=== PATIENT | female | born 1950 | race Caucasian/White ===

== ENCOUNTER 2017-09-15 15:08 | Outpatient (CLI) | payer MEDICARE, OTHER | END 2017-09-15 15:09 | disposition home or self-care (01) | LOC: BICMAMMO 15:08 | PROVIDERS: ATTEND Family Medicine | DX: Z12.31 Encounter for screening mammogram for malignant neoplasm of breast (principal) | CPT/HCPCS: 77066; G0279 ==

== ENCOUNTER 2018-09-28 14:08 | Outpatient (CLI) | payer MEDICARE, OTHER ==
--- NOTE | 2018-09-28 14:44 | MMO ---
Bilateral MAMMO Bilat Screen [facility]. CLINICAL HISTORY: Patient is 68 years old and is seen for screening. The patient has no family history of breast cancer. The patient has no personal history of cancer. VIEWS: The views performed were: bilateral craniocaudal with tomosynthesis; bilateral mediolateral oblique with tomosynthesis; and bilateral exaggerated craniocaudal. FILMS COMPARED: The present examination has been compared to prior imaging studies performed at [facility] on 11/01/2013, 08/07/2016 and 09/15/2017, and at [facility] on 05/09/2011. MAMMOGRAM FINDINGS: There are scattered fibroglandular densities. There are stable benign appearing calcifications seen in both breasts. There are also vascular calcifications. There are no suspicious masses, suspicious calcifications, or new areas of architectural distortion. IMPRESSION: THERE IS NO MAMMOGRAPHIC EVIDENCE OF MALIGNANCY. A ROUTINE FOLLOW-UP MAMMOGRAM IN 1 YEAR IS RECOMMENDED. THE RESULTS OF THIS EXAM WERE SENT TO THE PATIENT. ACR BI-RADS Category 2 - Benign finding MAMMOGRAPHY NOTE: 1. A negative mammogram report should not delay a biopsy if a dominant of clinically suspicious mass is present. 2. Approximately 10% to 15% of breast cancers are not detected by mammography. 3. Adenosis and dense breasts may obscure an underlying neoplasm.
== END 2018-09-28 14:09 | disposition home or self-care (01) ==
LOC: BICMAMMO 14:08
PROVIDERS: ATTEND Internal Medicine Cardiovascular Disease
DX: Z12.31 Encounter for screening mammogram for malignant neoplasm of breast (principal)
CPT/HCPCS: 77063; 77067

== ENCOUNTER 2018-11-18 17:58 | Inpatient (IN) | payer MEDICARE, OTHER ==
[2018-11-18 18:43] LABS: #Eosinphils 0.3 thou/uL (0.0-0.7); #Lymphocytes 2.2 thou/uL (1.20-3.40); #Monocytes 0.5 thou/uL (0.11-0.59); #Neutrophils 3.5 thou/uL (1.40-6.50); %Basophils 0.4 % (0.0-1.0); %Eosinophils 3.8 % (0.0-10.0); %Lymphocytes 34.1 % (21.0-51.0); %Monocytes 7.8 % (0.0-10.0); %Neutrophils 53.8 % (42.0-75.0); Hemoglobin 12.2 g/dL (12.0-16.0); Mean Corpuscular HGB CONC 33.9 g/dL (32.0-36.0); Mean Corpuscular Hemoglobin 30.6 pg (27.0-31.0); Mean Corpuscular Volume 90.3 fL (78.0-98.0); Mean Platelet Volume 9.1 fL (7.4-10.4); Platelet Count 170 thou/uL (130-400); RBC Distribution Width 11.7 % (11.5-14.5); Red Blood Cell (RBC) Count 3.99 mill/uL (4.20-5.40); White Blood Cell (WBC) Count 6.5 thou/uL (4.8-10.8)
--- NOTE | 2018-11-18 18:44 | RAD ---
CHEST TWO VIEWS: 11/18/18 HISTORY: Chest pain and shortness of breath. Heart size and mediastinum are within normal limits. The lungs are clear of infiltrates. There are ar thritic changes of the spine. IMPRESSION: No active intrathoracic disease. POS: OFF
[2018-11-18 19:04] LABS: ALT (SGPT) 30 U/L (8-55); AST (SGOT) 22 U/L (5-34); Albumin 4.5 g/dL (3.4-4.8); Alkaline Phosphatase 112 U/L (40-150); Anion Gap 16 mmol/L (10-20); BUN (Urea Nitrogen) 12 mg/dL (9.8-20.1); Bilirubin, Total 0.4 mg/dL (0.2-1.2); Calc. Creatinine Clearance 0 mL/min (70-130); Calcium 9.8 mg/dL (7.8-10.44); Carbon Dioxide 24 mmol/L (23-31); Chloride 106 mmol/L (98-107); Estimated GFR-MDRD 66; Globulin 2.5 g/dL (2.4-3.5); Glucose 107 mg/dL (80-115); Potassium 3.6 mmol/L (3.5-5.1); Sodium 142 mmol/L (136-145)
[2018-11-18] MEDS ORDERED: Nitroglycerin 2% Ointment 1 INCH/1 GM Packet ONE (19:23)
[2018-11-18] MEDS ORDERED: Aspirin Chewable 81 MG TAB ONE (19:23)
[2018-11-18] MEDS ORDERED: Acetaminophen 500 MG TAB ONE (20:02)
[2018-11-18] MEDS ORDERED: Ondansetron PF 4 MG/2 ML Vial IVP PRN (22:27)
[2018-11-18] MEDS ORDERED: Ondansetron ODT 4 MG TAB SL PRN (22:27)
[2018-11-18 23:08] VITALS: BMI 27.8
[2018-11-18 23:21] LABS: Troponin I Less than 0.010 ng/mL (< 0.028)
[2018-11-19 00:53] LABS: Troponin I Less than 0.010 ng/mL (< 0.028)
[2018-11-19] MEDS ORDERED: Nitroglycerin 0.4 MG TAB (25 Tab Bottle) SL PRN (02:08)
[2018-11-19] MEDS ORDERED: hydrALAZINE 20 MG/ML VIAL SLOW IVP PRN (02:08)
[2018-11-19] MEDS ORDERED: Acetaminophen 500 MG TAB PO PRN (02:08)
--- NOTE | 2018-11-19 03:00 | HP ---
TIME OF EVALUATION: 7:30 p.m. CHIEF COMPLAINT: Chest pain. HISTORY OF PRESENT ILLNESS: Ms. Self is a 68-year-old female with a past medical history significant for recently diagnosed coronary artery disease, hypertension, and hyperlipidemia, who presented to the hospital with complaints of worsening chest pain, fatigue, and shortness of breath. The patient states that she had a left heart catheterization performed by Dr. Perez on October 29, 2018 at an outpatient facility, records currently not available. Per the patient, at that time, she was told that she had 70% stenosis in 2 vessels. Medical management was recommended at that time. The patient has been on aspirin, statin, beta agueda , SANDEEP inhibitor, and Imdur was started right after her LHC. The patient did not respond well to Imdur and she continued to have chest pain, so she discontinued that medication. Over the last several weeks, the patient has noticed worsening fatigue. She has had some chest discomfort that she describes as a squeezing pain that occasionally radiates to the left shoulder. She has some general dyspnea on exertion that has been fairly constant and new for her along with general fatigue. Her symptoms worsened to the point today that she decided to seek emergent care at the emergency room at our facility. On arrival to the ER, the patient was given an application of nitroglycerin paste, which did help relieve her symptoms. Her EKG shows some very mild ST depression in the inferior leads and sinus rhythm. Her initial troponin is negative. REVIEW OF SYSTEMS: A 12-point review of systems was performed and is negative except as stated above. The patient has had no recent illnesses, fever, or sick contacts. ALLERGIES: IODINE. HOME MEDICATIONS: 1. Atorvastatin 40 mg 1 tablet daily. 2. Aspirin 81 mg daily. 3. Omeprazole 40 mg once daily. 4. Lisinopril 10 mg once daily. 5. Metoprolol tartrate 50 mg p.o. b.i.d. 6. Vitamin D3 2000 units once daily. 7. Fish oil 600 mg orally once daily. PAST MEDICAL HISTORY: Recently diagnosed [id number] coronary artery disease, hypertension, and hyperlipidemia. PAST SURGICAL HISTORY: Left heart catheterization and hysterectomy. SOCIAL HISTORY: The patient has no history of smoking, alcohol use, or illicit drug abuse. She lives independently here in town with family nearby. She has been very active up until a couple of months ago when her presenting symptoms started to limit her activities. PHYSICAL EXAMINATION: VITAL SIGNS: Blood pressure 178/83, pulse is 66, respirations 17, O2 saturation 95% on room air, and temperature 97.4. GENERAL: The patient is a well-appearing 68-year-old female, resting comfortably in bed, in no acute distress. HEENT: Head is atraumatic and normocephalic. Mucous membranes are moist. NECK: Trachea is midline. No obvious JVD. No carotid bruits. CV: S1 and S2. Regular rate and rhythm. No appreciable murmurs, rubs, or gallops. LUNGS: Regular respiratory rate and pattern. Clear to auscultation bilaterally. No rhonchi, wheezes, or crackles noted. ABDOMEN: Soft, positive bowel sounds, and nontender. EXTREMITIES: No edema, +2 DP pulses bilaterally. Both lower extremities are warm and well perfused. SKIN: Warm and dry. No rashes. NEUROLOGIC: Cranial nerves 2 through 12 are grossly intact. The patient is nonfocal. LABORATORY DATA: White blood cell count 6.5, hemoglobin 12.2, hematocrit 36, platelet count is 170. Sodium 142, potassium 3.6, carbon dioxide 24, BUN 12, creatinine 0.85. AST, ALT, and alkaline phosphatase all within normal limits. First troponin is negative. ASSESSMENT: 1. Chest pain concerning for Unstable angina. 2. Nbohbfsf-qu-sobaaj coronary artery disease per left heart catheterization in September of 2018; per patient, 70% stenosis in 2 vessels, report currently unavailable; the patient appears to have failed medical management at this time. 3. Hypertension. 4. Hyperlipidemia. PLAN: Will continue the patient's cardiac medications including aspirin, statin, beta-agueda, and SANDEEP inhibitor and titrate her antihypertensives accordingly. We will continue nitroglycerin paste and p.r.n. nitrates. We will consult Cardiology for further recommendations regarding the patient's symptoms, further management, and appropriateness of left heart catheterization with possible PCI this hospitalization. Further recommendations based on hospital course. Job ID: [id number] [facility]
[2018-11-19 05:47] LABS: Cardiac Risk 4.1 (Less than 4.5)
[2018-11-19] MEDS: Nitroglycerin 2% Ointment 1 INCH/1 GM Packet TOP SCH ×3 (06:33→21:13)
[2018-11-19] MEDS: Fish Oil 1,000 MG CAP PO SCH ×2 (08:13→21:15)
[2018-11-19] MEDS: Lisinopril 10 MG TAB PO SCH (08:13)
[2018-11-19] MEDS: Aspirin 81 mg Enteric Coated Tablet PO SCH (08:13)
[2018-11-19] MEDS: Metoprolol Tartrate 50 MG TAB PO SCH ×2 (08:14→21:14)
[2018-11-19] MEDS ORDERED: Atorvastatin Calcium 40 MG TAB PO SCH (09:00)
--- NOTE | 2018-11-19 14:04 | PDOC.PN ---
- Subjective Encounter Start Date: 11/19/18 Encounter Start Time: 11:30 Subjective: Patient examined, was resting comfortably -: Patient denies c/o, denies SOB, chest pain - Objective Vital Signs & Weight: Vital Signs (12 hours) Temp Pulse Resp BP BP Pulse Ox 11/19/18 11:50 97.7 F 54 L 15 165/73 H 99 11/19/18 08:13 158/75 H 11/19/18 08:00 98.4 F 69 16 158/75 H 98 11/19/18 02:59 97.6 F 76 14 131/63 96 Weight Weight 71.123 kg I&O: 11/18/18 11/19/18 11/20/18 06:59 06:59 06:59 Intake Total 0 Output Total 150 Balance -150 Result Diagrams: 11/20/18 11:31 11/18/18 18:21 Phys Exam - Physical Examination HEENT: PERRLA, moist MMs Neck: no nodes, supple Respiratory: clear to auscultation bilateral Cardiovascular: RRR Gastrointestinal: soft, non-tender Musculoskeletal: no edema, pulses present Neurological: non-focal, normal sensation Lymphatic: no nodes Psychiatric: normal affect, A&O x 3 Skin: no rash, normal turgor Dx/Plan (1) Hypertension Code(s): I10 - ESSENTIAL (PRIMARY) HYPERTENSION Status: Chronic (2) CAD (coronary artery disease) Code(s): I25.10 - ATHSCL HEART DISEASE OF [place] CORONARY ARTERY W/O ANG PCTRS Status: Chronic (3) Chest pain Code(s): R07.9 - CHEST PAIN, UNSPECIFIED Status: Acute - Plan cont current plan of care Cardiology has seen patient and changed her medications -: Will repeat labs in AM, will continue to monitor -: Will DC once cleared by cardiology * . Review of Systems - Review of Systems Cardiovascular: light headedness Neurological: Weakness - Medications/Allergies Allergies/Adverse Reactions: Allergies Allergy/AdvReac Type Severity Reaction Status Date / Time iodine Allergy Intermediate Nausea Verified 11/18/18 23:14 Medications: Current Medications Acetaminophen (Tylenol) 1,000 mg PO Q6H PRN PRN Reason: Mild Pain (1-3) Aspirin (Ecotrin) 81 mg PO DAILY [facility] Last Admin: 11/19/18 08:13 Dose: 81 mg Atorvastatin Calcium (Lipitor) 80 mg PO HS [facility] Cholecalciferol (Vitamin D3) 2,000 units PO DAILY [facility] Last Admin: 11/19/18 08:13 Dose: 2,000 units Fish Oil (Fish Oil) 1,000 mg PO BID [facility] Last Admin: 11/19/18 08:13 Dose: 1,000 mg Hydralazine HCl (Apresoline) 10 mg SLOW IVP Q4H PRN PRN Reason: SBP > 180 and HR < 70 Isosorbide Mononitrate (Imdur Er) 15 mg PO DAILY [facility] Lisinopril (Zestril) 10 mg PO DAILY [facility] Last Admin: 11/19/18 08:13 Dose: 10 mg Metoprolol Tartrate (Lopressor) 50 mg PO BID [facility] Last Admin: 11/19/18 08:14 Dose: 50 mg Nitroglycerin (Nitro-Bid 2% Ointment) 0.5 inch TOP Q8HR [facility] Stop: 11/20/18 06:00 Last Admin: 11/19/18 06:33 Dose: Not Given Nitroglycerin (Nitrostat) 0.4 mg SL Q5MIN PRN PRN Reason: Chest Pain Pantoprazole Sodium (Protonix) 40 mg PO BID [facility]
--- NOTE | 2018-11-19 14:51 | CON ---
DATE OF CONSULTATION: HISTORY OF PRESENT ILLNESS: Chio Self is a 68-year-old white female, followed by Dr. Perez. She had a normal cardiac PET scan in 08/2017. She returned for followup in 08/2018. She continued to complain of chest discomfort. Ultimately, decision was made to have her undergo cardiac catheterization. This was performed at [facility]. She was found to have an ejection fraction of 70%. The left main and LAD were normal. The left circumflex had a 60% to 70 % lesion in the first obtuse marginal. There was a 60% to 70% proximal right coronary artery lesion. It was felt best to treat her medically and isosorbide mononitrate ER 30 mg q.a.m. was added to her regimen. She stopped taking this due to lightheadedness and weakness, but denied any headache when taking medication. She now is admitted with increased lower chest discomfort. She describes as a pressure in her chest that comes on with exertion; however, now it is seems to occur more at rest. This would last for 10-15 minutes. She states that she thinks her chest pain got worse because "Dr. Perez was messing around in there." She does have a history of GERD and takes omeprazole 40 mg on a daily basis. PAST MEDICAL HISTORY: 1. Hypertension. 2. Hypercholesterolemia, poorly controlled. 3. Coronary artery disease. 4. Fatty liver. OPERATIONS: Hysterectomy. MEDICATIONS: 1. Omeprazole 40 mg daily. 2. Aspirin 81 mg daily. 3. Atorvastatin 40 daily. 4. Lisinopril 10 mg daily. 5. Metoprolol 50 b.i.d. 6. Fish oil 1000 mg b.i.d. ALLERGIES: IODINE. SOCIAL HISTORY: She does not smoke or drink. REVIEW OF SYSTEMS: A 10-point review of systems is otherwise unremarkable. PHYSICAL EXAMINATION: VITAL SIGNS: Blood pressure 165/73 and pulse of 54. HEENT: PERRL. NECK: Supple. CHEST: Clear. CARDIAC: S1 and S2 are normal without any S3, S4, or murmurs. ABDOMEN: Normal bowel sounds without tenderness. Specifically there is no epigastric tenderness. EXTREMITIES: No clubbing, cyanosis, or edema. NEUROLOGIC: Grossly intact. SKIN: Warm and dry. LABORATORY DATA: EKG reveals normal sinus rhythm with nonspecific ST changes. CBC is unremarkable. Cholesterol 196, triglycerides 143, HDL 48, and LDL 119. TSH is normal. Cardiac enzymes are normal x3. Sodium 142, potassium 3.6, chloride 106 , carbon dioxide 24, BUN 12, and creatinine 0.85. IMPRESSION: 1. Progressive chest discomfort. With her anatomy on catheterization 3 weeks ago, it would seem unlikely that this pain would be cardiac in nature. 2. Coronary artery disease with 60% to 70% first obtuse marginal lesion and 60% to 70% right coronary artery lesion. 3. Hypertension. 4. Hypercholesterolemia, poorly controlled. PLAN: It would be unlikely that her current symptoms are cardiac in nature given her anatomy on catheterization 3 weeks ago. I would restart her isosorbide mononitrate, however, we will only start her on 15 mg daily. I also would double her proton pump inhibitor while in the hospital. If she continues to have chest discomfort, then consideration may need to be given to repeat catheterization and flow-wire measurement versus intravascular ultrasound of her lesions. Job ID: [id number] [facility]
[2018-11-19] MEDS: Atorvastatin Calcium 40 MG TAB PO SCH (21:15)
[2018-11-20] MEDS: Nitroglycerin 2% Ointment 1 INCH/1 GM Packet TOP SCH (06:27)
[2018-11-20] MEDS: Aspirin 81 mg Enteric Coated Tablet PO SCH (08:25)
[2018-11-20] MEDS: Fish Oil 1,000 MG CAP PO SCH ×2 (08:25→20:09)
[2018-11-20] MEDS: Metoprolol Tartrate 50 MG TAB PO SCH ×2 (08:26→20:10)
[2018-11-20] MEDS: Lisinopril 10 MG TAB PO SCH (08:26)
[2018-11-20 11:44] LABS: #Eosinphils 0.2 thou/uL (0.0-0.7); #Lymphocytes 1.5 thou/uL (1.20-3.40); #Monocytes 0.6 thou/uL (0.11-0.59); #Neutrophils 3.6 thou/uL (1.40-6.50); %Basophils 0.4 % (0.0-1.0); %Monocytes 9.6 % (0.0-10.0); Mean Corpuscular HGB CONC 34.6 g/dL (32.0-36.0); Mean Corpuscular Hemoglobin 31.6 pg (27.0-31.0); Mean Corpuscular Volume 91.3 fL (78.0-98.0); Mean Platelet Volume 8.4 fL (7.4-10.4); Platelet Count 179 thou/uL (130-400); RBC Distribution Width 11.9 % (11.5-14.5); White Blood Cell (WBC) Count 5.9 thou/uL (4.8-10.8)
--- NOTE | 2018-11-20 11:54 | PDOC.PN ---
- Subjective Encounter Start Date: 11/20/18 Encounter Start Time: 10:00 Subjective: Patient examined today, reports she did not sleep well -: Also reports her BP went up overnight -: C/o of profound fatigue, reports she finds it difficult to do ADLs - Objective Vital Signs & Weight: Vital Signs (12 hours) Temp Pulse Resp BP BP BP Pulse Ox 11/20/18 11:13 97.7 F 64 12 134/60 95 11/20/18 08:26 125/63 11/20/18 07:00 97.6 F 65 12 125/63 94 L 11/20/18 04:29 98.3 F 72 14 102/49 L 95 Weight Weight 70.352 kg I&O: 11/19/18 11/20/18 11/21/18 06:59 06:59 06:59 Intake Total 0 1080 Output Total 150 1050 Balance -150 30 Result Diagrams: 11/20/18 11:31 11/20/18 11:31 Phys Exam - Physical Examination HEENT: PERRLA, moist MMs Neck: no nodes, full ROM Respiratory: clear to auscultation bilateral Cardiovascular: RRR Gastrointestinal: soft, non-tender Musculoskeletal: pulses present, edema present Neurological: normal sensation, moves all 4 limbs Lymphatic: no nodes Psychiatric: normal affect, A&O x 3 Skin: no rash, cap refill <2 seconds Dx/Plan (1) Hypertension Code(s): I10 - ESSENTIAL (PRIMARY) HYPERTENSION Status: Chronic (2) CAD (coronary artery disease) Code(s): I25.10 - ATHSCL HEART DISEASE OF [place] CORONARY ARTERY W/O ANG PCTRS Status: Chronic (3) Chest pain Code(s): R07.9 - CHEST PAIN, UNSPECIFIED Status: Acute (4) Fatigue Code(s): R53.83 - OTHER FATIGUE Status: Acute - Plan cont current plan of care Cardiology has been consulted, changed her medications -: PT evaluation with CM consult for HH, PT, and/or SNF -: Iron/Ferritin labs ordered, -: Will continue to monitor, appreciate cardiology's recommendations -: Case/plan discussed with Dr. Morin * . Review of Systems - Review of Systems Cardiovascular: chest pain Other: Profound fatigue, - Medications/Allergies Allergies/Adverse Reactions: Allergies Allergy/AdvReac Type Severity Reaction Status Date / Time iodine Allergy Intermediate Nausea Verified 06/20/19 23:14 Medications: Current Medications Acetaminophen (Tylenol) 1,000 mg PO Q6H PRN PRN Reason: Mild Pain (1-3) Aspirin (Ecotrin) 81 mg PO DAILY [facility] Last Admin: 11/20/18 08:25 Dose: 81 mg Atorvastatin Calcium (Lipitor) 80 mg PO HS [facility] Last Admin: 11/19/18 21:15 Dose: 80 mg Cholecalciferol (Vitamin D3) 2,000 units PO DAILY [facility] Last Admin: 11/20/18 08:25 Dose: 2,000 units Fish Oil (Fish Oil) 1,000 mg PO BID [facility] Last Admin: 11/20/18 08:25 Dose: 1,000 mg Hydralazine HCl (Apresoline) 10 mg SLOW IVP Q4H PRN PRN Reason: SBP > 180 and HR < 70 Isosorbide Mononitrate (Imdur Er) 15 mg PO DAILY [facility] Last Admin: 11/20/18 08:25 Dose: 15 mg Lisinopril (Zestril) 10 mg PO DAILY [facility] Last Admin: 11/20/18 08:26 Dose: 10 mg Metoprolol Tartrate (Lopressor) 50 mg PO BID [facility] Last Admin: 11/20/18 08:26 Dose: 50 mg Nitroglycerin (Nitrostat) 0.4 mg SL Q5MIN PRN PRN Reason: Chest Pain Pantoprazole Sodium (Protonix) 40 mg PO BID [facility] Last Admin: 11/20/18 08:30 Dose: 40 mg
[2018-11-20 12:02] LABS: Anion Gap 10 mmol/L (10-20); BUN (Urea Nitrogen) 15 mg/dL (9.8-20.1); Calc. Creatinine Clearance 70 mL/min (70-130); Calcium 9.4 mg/dL (7.8-10.44); Carbon Dioxide 24 mmol/L (23-31); Chloride 109 mmol/L (98-107); Estimated GFR-MDRD 68; Glucose 112 mg/dL (80-115); Iron 85 ug/dL (50-170); Iron Binding Capacity, Total 306 mcg/dL (265-497); Potassium 4.1 mmol/L (3.5-5.1); Sodium 139 mmol/L (136-145)
[2018-11-20] MEDS: Atorvastatin Calcium 40 MG TAB PO SCH (20:09)
[2018-11-21 04:40] LABS: #Eosinphils 0.3 thou/uL (0.0-0.7); #Lymphocytes 1.6 thou/uL (1.20-3.40); #Monocytes 0.5 thou/uL (0.11-0.59); #Neutrophils 2.4 thou/uL (1.40-6.50); %Basophils 0.7 % (0.0-1.0); %Eosinophils 5.5 % (0.0-10.0); %Monocytes 10.8 % (0.0-10.0); Hemoglobin 11.5 g/dL (12.0-16.0); Mean Corpuscular HGB CONC 34.5 g/dL (32.0-36.0); Mean Corpuscular Hemoglobin 31.5 pg (27.0-31.0); Mean Corpuscular Volume 91.3 fL (78.0-98.0); Mean Platelet Volume 8.4 fL (7.4-10.4); Platelet Count 163 thou/uL (130-400); RBC Distribution Width 11.8 % (11.5-14.5); Red Blood Cell (RBC) Count 3.67 mill/uL (4.20-5.40); White Blood Cell (WBC) Count 4.8 thou/uL (4.8-10.8)
[2018-11-21 04:59] LABS: Anion Gap 12 mmol/L (10-20); BUN (Urea Nitrogen) 15 mg/dL (9.8-20.1); Calc. Creatinine Clearance 76 mL/min (70-130); Carbon Dioxide 22 mmol/L (23-31); Chloride 109 mmol/L (98-107); Estimated GFR-MDRD 74; Glucose 110 mg/dL (80-115); Sodium 139 mmol/L (136-145)
[2018-11-21] MEDS: Aspirin 81 mg Enteric Coated Tablet PO SCH (08:50)
[2018-11-21] MEDS: Fish Oil 1,000 MG CAP PO SCH (08:50)
[2018-11-21] MEDS: Lisinopril 10 MG TAB PO SCH (08:50)
[2018-11-21] MEDS: Metoprolol Tartrate 50 MG TAB PO SCH (08:50)
[2018-11-21 12:07] VITALS: BP 133/63; TEMP 97.7
== END 2018-11-21 15:22 | disposition home or self-care (01) | DRG 313 ==
LOC: ERS 17:58 → 2SW 20:00 → OBSVTOIN 11-20 15:01
PROVIDERS: ADMIT Hospitalist; ATTEND Hospitalist
DX: R07.89 Other chest pain (principal); I25.10 Atherosclerotic heart disease of native coronary artery without angina pectoris; I10 Essential (primary) hypertension; E78.5 Hyperlipidemia, unspecified; R53.83 Other fatigue; Z79.82 Long term (current) use of aspirin; Z90.710 Acquired absence of both cervix and uterus; Z88.8 Allergy status to other drugs, medicaments and biological substances
CPT/HCPCS: 36415; 71046; 80048; 80053; 80061; 82306; 82728; 83540; 83550; 83690; 84443; 84484; 85025; 93005

== ENCOUNTER 2018-12-21 13:43 | Outpatient (CLI) | payer MEDICARE, OTHER ==
[2018-12-21 16:18] LABS: #Eosinphils 0.5 thou/uL (0.0-0.7); #Lymphocytes 1.6 thou/uL (1.20-3.40); #Monocytes 0.8 thou/uL (0.11-0.59); #Neutrophils 4.5 thou/uL (1.40-6.50); %Basophils 0.3 % (0.0-1.0); %Eosinophils 7.1 % (0.0-10.0); %Lymphocytes 22.1 % (21.0-51.0); %Monocytes 10.1 % (0.0-10.0); %Neutrophils 60.4 % (42.0-75.0); Hemoglobin 11.9 g/dL (12.0-16.0); Mean Corpuscular Hemoglobin 30.4 pg (27.0-31.0); Mean Corpuscular Volume 92.4 fL (78.0-98.0); Mean Platelet Volume 8.9 fL (7.4-10.4); Platelet Count 187 thou/uL (130-400); RBC Distribution Width 12.5 % (11.5-14.5); Red Blood Cell (RBC) Count 3.91 mill/uL (4.20-5.40); White Blood Cell (WBC) Count 7.4 thou/uL (4.8-10.8)
[2018-12-21 16:24] LABS: PTT 29.3 SEC (22.9-36.1); Prothrombin Time 13.3 SEC (12.0-14.7)
[2018-12-21 16:37] LABS: ALT (SGPT) 62 U/L (8-55); AST (SGOT) 35 U/L (5-34); Albumin 4.5 g/dL (3.4-4.8); Alkaline Phosphatase 95 U/L (40-150); Anion Gap 13 mmol/L (10-20); BUN (Urea Nitrogen) 13 mg/dL (9.8-20.1); Bilirubin, Total 0.7 mg/dL (0.2-1.2); Calc. Creatinine Clearance 0 mL/min (70-130); Calcium 10.3 mg/dL (7.8-10.44); Carbon Dioxide 25 mmol/L (23-31); Chloride 106 mmol/L (98-107); Estimated GFR-MDRD 72; Globulin 2.5 g/dL (2.4-3.5); Glucose 111 mg/dL (80-115); Potassium 4.2 mmol/L (3.5-5.1); Sodium 140 mmol/L (136-145)
== END 2018-12-21 13:44 | disposition home or self-care (01) ==
LOC: LABBT 13:43
PROVIDERS: ATTEND Internal Medicine Cardiovascular Disease
DX: Z01.812 Encounter for preprocedural laboratory examination (principal)
CPT/HCPCS: 80053; 85025; 85610; 85730

== ENCOUNTER 2018-12-23 06:56 | Observation (INO) | payer MEDICARE, OTHER ==
[2018-12-23] MEDS ORDERED: Lidocaine 1% (PF) 30 ML VIAL ONE (08:23)
[2018-12-23 08:30] LABS: Cardiac Risk 2.8 (Less than 4.5)
[2018-12-23] MEDS ORDERED: Fentanyl 100 MCG/2 ML VIAL ONE ×2 (09:54→12:36)
[2018-12-23] MEDS ORDERED: Midazolam HCl 2 mg/2 ml Vial ONE (09:54)
[2018-12-23] MEDS ORDERED: Heparin 10,000 UNITS/1 ML VIAL ONE (10:06)
[2018-12-23] MEDS ORDERED: Iopamidol 370 76% 50 ML VIAL FS ONE (10:26)
[2018-12-23] MEDS ORDERED: Iopamidol 370 76% 100 ML VIAL ONE (10:26)
[2018-12-23] MEDS ORDERED: hydrALAZINE 20 MG/ML VIAL ONE (11:05)
[2018-12-23 16:25] VITALS: BMI 27.8
[2018-12-23] MEDS ORDERED: Sodium Chloride 0.9% 1,000 ML IV SCH (17:00)
[2018-12-23] MEDS: predniSONE 50 MG TAB PO SCH (18:03)
[2018-12-23] MEDS: Metoprolol Tartrate 50 MG TAB PO SCH (20:55)
[2018-12-23] MEDS: Fish Oil 1,000 MG CAP PO SCH (20:55)
[2018-12-23] MEDS ORDERED: Atorvastatin Calcium 40 MG TAB PO SCH (21:00)
--- NOTE | 2018-12-23 21:12 | ULT ---
ULTRASOUND RIGHT GROIN FOR PSEUDOANEURYSM EVALUATION: 12/23/18 INDICATION: Assess right femoral to rule out pseudoaneurysm. Pain right groin. FINDINGS: Common femoral artery and common femoral vein are identified with ultrasound. Color Doppler and spect ral analysis was used to evaluate these vessels. There is no evidence of pseudoaneurysm. No evidence of hematoma. IMPRESSION: No evidence of pseudoaneurysm identified. POS: [facility]
[2018-12-23] MEDS: TICAGRELOR 90 MG TABLET PO SCH (22:40)
[2018-12-24 05:43] LABS: #Lymphocytes 1.1 thou/uL (1.20-3.40); #Monocytes 0.7 thou/uL (0.11-0.59); #Neutrophils 8.5 thou/uL (1.40-6.50); %Basophils 0.2 % (0.0-1.0); %Eosinophils 0.1 % (0.0-10.0); %Lymphocytes 10.2 % (21.0-51.0); %Monocytes 7.1 % (0.0-10.0); %Neutrophils 82.4 % (42.0-75.0); Hemoglobin 10.1 g/dL (12.0-16.0); Mean Corpuscular HGB CONC 35.1 g/dL (32.0-36.0); Mean Corpuscular Hemoglobin 31.9 pg (27.0-31.0); Mean Corpuscular Volume 90.9 fL (78.0-98.0); Mean Platelet Volume 8.7 fL (7.4-10.4); Platelet Count 207 thou/uL (130-400); RBC Distribution Width 12.6 % (11.5-14.5); Red Blood Cell (RBC) Count 3.17 mill/uL (4.20-5.40); White Blood Cell (WBC) Count 10.3 thou/uL (4.8-10.8)
[2018-12-24 06:07] LABS: ALT (SGPT) 36 U/L (8-55); AST (SGOT) 15 U/L (5-34); Albumin 3.6 g/dL (3.4-4.8); Alkaline Phosphatase 66 U/L (40-150); Anion Gap 11 mmol/L (10-20); BUN (Urea Nitrogen) 13 mg/dL (9.8-20.1); Bilirubin, Total 0.5 mg/dL (0.2-1.2); Calc. Creatinine Clearance 82 mL/min (70-130); Calcium 9.1 mg/dL (7.8-10.44); Carbon Dioxide 23 mmol/L (23-31); Chloride 111 mmol/L (98-107); Estimated GFR-MDRD 84; Globulin 2.2 g/dL (2.4-3.5); Glucose 162 mg/dL (80-115); Potassium 3.7 mmol/L (3.5-5.1); Protein, Total 5.8 g/dL (6.0-8.3); Sodium 141 mmol/L (136-145)
[2018-12-24 08:19] VITALS: TEMP 97.3
[2018-12-24] MEDS: Fish Oil 1,000 MG CAP PO SCH (08:25)
[2018-12-24] MEDS: predniSONE 50 MG TAB PO SCH (08:25)
[2018-12-24] MEDS: TICAGRELOR 90 MG TABLET PO SCH (08:26)
[2018-12-24] MEDS: Metoprolol Tartrate 50 MG TAB PO SCH (08:26)
[2018-12-24] MEDS ORDERED: Lisinopril 10 MG TAB PO SCH (09:00)
[2018-12-24] MEDS ORDERED: Aspirin 81 mg Enteric Coated Tablet PO SCH (09:00)
--- NOTE | 2018-12-24 09:03 | PDOC.CTH ---
Cardiology Progress Note - Subjective The pt seen and examined. No cardiac complaints. Hemorrhage from the Rt fem site overnight. Hematoma, but no mass or active bleeding from the site at this moment. She already walked to bathroom this AM without any difficulties. - Objective Vital Signs Temp Pulse Resp BP Pulse Ox 12/24/18 07:55 97.3 F L 64 20 155/67 H 95 12/24/18 04:00 98.7 F 66 16 127/59 L 97 12/23/18 23:55 97.9 F 72 16 111/52 L 95 Weight 150 lb 6.4 oz 12/23/18 12/24/18 12/25/18 06:59 06:59 06:59 Intake Total 2142 Output Total 1360 Balance 782 - Physical Examination General/Neuro: alert & oriented x3 Neck: no JVD present Lungs: CTA Heart: RRR Abdomen: soft Extremities: other: (No edema; 2+ pulses to BLE) - Telemetry Telemetry Rhythm: SR - Labs Result Diagrams: 12/24/18 05:17 12/24/18 05:17 - Assessment/Plan 1. CAD with S/p MARY in OM1 on 12/23/2018 - Stable; no ROONEY or CP with exercise. On Metoprolol 50mg BID, Brelinta with ASA, Lisinopril and Lipitor 80mg qd. 2. HTN - stable; the pt will check and record her VS at least qd at home 3. HLD - on Lipitor 80mg qd; the pt is willing to start exercise and watch her diet more carefully 4. Fatty liver MAR reviewed * From Cardiac standpoint, the pt is stable to d/c home. The pt will f/u with Dr Perez within 2 wks. Review of Systems - Review of Systems Constitutional: reports: no symptoms reported EENTM: reports: no symptoms reported Respiratory: reports: no symptoms reported Cardiac (ROS): reports: no symptoms reported ABD/GI: reports: no symptoms reported : reports: no symptoms reported Musculoskeletal: reports: no symptoms reported
[2018-12-24 10:17] VITALS: BP 169/74
--- NOTE | 2018-12-27 08:57 | EKG ---
Test Reason : Blood Pressure : / mmHG Vent. Rate : 078 BPM Atrial Rate : 078 BPM P-R Int : 132 ms QRS Dur : 098 ms QT Int : 384 ms P-R-T Axes : 058 027 -13 degrees QTc Int : 437 ms Normal sinus rhythm Nonspecific ST abnormality Abnormal ECG When compared with ECG of 18-NOV-2018 18:06, Inverted T waves have replaced nonspecific T wave abnormality in Inferior leads Confirmed by DR. Robbin EMANUEL ([id number]) on 12/27/2018 8:56:36 AM Referred By: Confirmed By:DR. Robbin EMANUEL
== END 2018-12-24 10:19 | disposition home or self-care (01) ==
LOC: CCL 06:56 → 2SW 16:00
PROVIDERS: ADMIT Internal Medicine Cardiovascular Disease; ATTEND Internal Medicine Cardiovascular Disease
PROC: 02703ZZ Dilation of Coronary Artery, One Artery, Percutaneous Approach (ICD-10-PCS; principal; 2018-12-23)
DX: I25.10 Atherosclerotic heart disease of native coronary artery without angina pectoris (principal); I11.0 Hypertensive heart disease with heart failure; I50.9 Heart failure, unspecified; E78.00 Pure hypercholesterolemia, unspecified; K76.0 Fatty (change of) liver, not elsewhere classified; Z91.041 Radiographic dye allergy status
CPT/HCPCS: 80053; 80061; 85025; 85347 ×2; 93005; 93571; 93798; 93926; 96360; 96361; C1760; C1769 ×4; C1874; C1887; C9600; C9601; G0378 ×2; 36415; 92928; 92929; 93010; 99152; 99153; J0153; J0360; J1644; J2001; J2250; J3010; Q9967

== ENCOUNTER 2020-03-26 09:16 | Outpatient (CLI) | payer MEDICARE ==
--- NOTE | 2020-03-26 10:42 | MMO ---
Bilateral MAMMO Bilat Screen [facility]. CLINICAL HISTORY: Patient is 70 years old and is seen for screening. The patient has no family history of breast cancer. The patient has no personal history of cancer. VIEWS: The views performed were: bilateral craniocaudal with tomosynthesis and bilateral mediolateral oblique with tomosynthesis. FILMS COMPARED: The present examination has been compared to prior imaging studies performed at [facility] on 11/01/2013, 08/07/2016, 09/15/2017 and 09/28/2018. This study has been interpreted with the assistance of computer-aided detection. MAMMOGRAM FINDINGS: There are scattered fibroglandular densities. Benign calcifications are noted bilaterally. There are no suspicious masses, suspicious calcifications, or new areas of architectural distortion. IMPRESSION: THERE IS NO MAMMOGRAPHIC EVIDENCE OF MALIGNANCY. A ROUTINE FOLLOW-UP MAMMOGRAM IN 1 YEAR IS RECOMMENDED. THE RESULTS OF THIS EXAM WERE SENT TO THE PATIENT. ACR BI-RADS Category 2 - Benign finding MAMMOGRAPHY NOTE: 1. A negative mammogram report should not delay a biopsy if a dominant of clinically suspicious mass is present. 2. Approximately 10% to 15% of breast cancers are not detected by mammography. 3. Adenosis and dense breasts may obscure an underlying neoplasm. Reported by: GEORGINA CASH MD Electonically Signed: [id number]
== END 2020-03-26 09:17 | disposition home or self-care (01) ==
LOC: BICMAMMO 09:16
PROVIDERS: ATTEND Family Medicine
DX: Z12.31 Encounter for screening mammogram for malignant neoplasm of breast (principal)
CPT/HCPCS: 77063; 77067

== ENCOUNTER 2021-11-15 10:39 | Outpatient (CLI) | payer MEDICARE | END 2021-11-15 10:40 | disposition home or self-care (01) | LOC: BICMAMMO 10:39 | PROVIDERS: ATTEND Family Medicine | DX: Z12.31 Encounter for screening mammogram for malignant neoplasm of breast (principal) | CPT/HCPCS: 77063; 77067 ==